=== PATIENT | female | born 1975 | race Caucasian/White ===

== ENCOUNTER 2024-04-07 15:21 | Emergency (ER) | payer MEDICARE ==
[~2024-04-07] VITALS: Ht 157.5 cm; Wt 45.4 kg
[2024-04-07 16:09] LABS: ABG BASE EXCESS 1.6 mmol/L (-2.0-3.0); ABG HCO3 26.3 mmol/L (21.0-28.0); ABG OXYGEN SATURATION 96.7 % (95.0-99.0); ABG PCO2 41 mmHg (32-45); PO2, ARTERIAL BG 86.8 mmHg (83.0-108.0)
[2024-04-07 16:14] LABS: APPEARANCE,URINE CLEAR (CLEAR); BILIRUBIN,URINE NEGATIVE (NEGATIVE); COLOR,URINE YELLOW (YELLOW); GLUCOSE, URINE (UA) NEGATIVE (NEGATIVE); KETONES,URINE 20 mg/dL (NEGATIVE); LEUKOCYTE ESTERASE ,URINE NEGATIVE Leu/uL (NEGATIVE); NITRATE,URINE NEGATIVE (NEGATIVE); PH,URINE 6.5 (5.0-8.0); PROTEIN,URINE 30 mg/dL (NEGATIVE); UROBILINOGEN,URINE 3 mg/dL (0.2-1.0)
[2024-04-07 16:17] LABS: ADD UA MICROSCOPIC YES
[2024-04-07] MEDS: 0.9%NACL 1000ML 1,000 ML IV ONE (16:17)
[2024-04-07 16:21] LABS: BACTERIA,URINE RARE /HPF (None Seen); SQUAMOUS EPITHELIAL CELL,UR FEW /HPF (0-2)
[2024-04-07 16:28] LABS: BASOPHILS # (AUTO) 0.04 K/uL (0.00-0.20); BASOPHILS % (AUTO) 0.2 % (0.0-5.0); HEMATOCRIT 43.8 % (36-48); IMMATURE GRANULOCYTE ABSOLUTE 0.13 K/uL (0-1); LYMPHOCYTES # (AUTO) 3.4 K/uL (1.0-4.8); LYMPHOCYTES % (AUTO) 13.3 % (21.0-51.0); MEAN CORPUSCULAR HEMOGLOBIN 33.3 pg (27.0-33.0); MEAN CORPUSCULAR HGB CONC 33.1 g/dL (32.0-36.0); MEAN CORPUSCULAR VOLUME 100.5 fL (79-99); MONOCYTES # (AUTO) 3.2 K/uL (0.1-1.0); MONOCYTES % (AUTO) 12.7 % (3.0-13.0); NEUTROPHILS # (AUTO) 18.6 K/uL (1.8-7.7); NEUTROPHILS % (AUTO) 73.3 % (40.0-77.0); PLATELET COUNT (AUTO) 285 K/uL (130-400); RED BLOOD CELL COUNT(AUTO) 4.36 MIL/uL (4.00-5.50); RED CELL DISTRIBUTION WIDTH 13.3 % (11.0-15.5); WHITE BLOOD COUNT (AUTO) 25.4 K/uL (4.8-10.8)
[2024-04-07 16:36] LABS: CARBON DIOXIDE 32 mmol/L (21-32); CHLORIDE 102 mmol/L (101-111); GLOMERULAR FILTR. RATE CALC 70 mL/min (>90); GLUCOSE,RANDOM 77 mg/dL (70-105); POTASSIUM 3.8 mmol/L (3.5-5.1); SODIUM SERUM 142 mmol/L (136-145); UREA NITROGEN, BLOOD 17 mg/dL (7-18)
[2024-04-07 16:47] LABS: ALANINE AMINOTRANSFERASE 15 U/L (12-78); ALBUMIN 2.9 g/dL (3.5-5.0); AMMONIA < 10 umol/L (11-32); ASPARTATE AMINOTRANSFERASE 12 U/L (10-37); BILIRUBIN,TOTAL 0.4 mg/dL (0.2-1.0); CREATINE KINASE, TOTAL 24 U/L (21-232); HCG,QUANTITATIVE 0 mIU/mL (0-5); TOTAL PROTEIN, SERUM 7.3 g/dL (6.0-8.3)
[2024-04-07 16:55] LABS: B-TYPE NATRIURETIC PEPTIDE 187 pg/mL (0-100)
[2024-04-07] MEDS: CEFTRIAXONE 1G VIAL IVPB ONE (18:46)
[2024-04-07] MEDS ORDERED: LEVE-43 PO (19:51)
[2024-04-07] MEDS ORDERED: LURA120T PO (19:51)
[2024-04-07] MEDS ORDERED: FLUO40CA7 PO (19:51)
[2024-04-07] MEDS ORDERED: BACL5TAB PO (19:51)
[2024-04-07] MEDS ORDERED: DIVA500T2 PO (19:51)
[2024-04-07] MEDS ORDERED: TRAZ150T79 PO (19:51)
[2024-04-07] MEDS ORDERED: PROP60TA20 PO (19:51)
[2024-04-07] MEDS ORDERED: MEMA5TAB16 PO (19:51)
[2024-04-07 20:51] LABS: AMPHET/METH SCREEN,URINE NEGATIVE (NEGATIVE); BARBITURATE SCREEN, URINE NEGATIVE (NEGATIVE); BENZODIAZEPINES SCREEN,URINE NEGATIVE (NEGATIVE); CANNABINOID SCREEN,URINE NEGATIVE (NEGATIVE); COCAINE SCREEN,URINE NEGATIVE (NEGATIVE); OPIATE SCREEN,URINE NEGATIVE (NEGATIVE); PHENCYCLIDINE SCREEN,URINE NEGATIVE (NEGATIVE)
[2024-04-08 05:49] VITALS: BP 110/54; PULSE 61; RESP 17; O2SAT 96
[2024-04-11 11:10] LABS: FREE KAPPA LIGHT CHAINS,S 24.5 mg/L (3.3-19.4)
== END 2024-04-08 03:34 | disposition short-term general hospital (02) ==
LOC: EDH 15:21
DX: A41.9 Sepsis, unspecified organism (principal); N13.2 Hydronephrosis with renal and ureteral calculous obstruction; F32.A Depression, unspecified; R10.2 Pelvic and perineal pain; Z79.899 Other long term (current) drug therapy; Z98.890 Other specified postprocedural states
CPT/HCPCS: 99291; 70450; 96365; 96361; 71045; 80164; 82550; 83735; 84484; 80053; 82803; 83880; 80305; 84702; 82140 ×2; 85025; 83521 ×2; 87040 ×2; 83605; 86000 ×6; 82010; 36415; 71250; 70486; 74176; 93005; 36600; 80177; 81001; J7030; J0696